=== PATIENT | female | born 1965 | race African-American/Black ===

== ENCOUNTER 2023-07-18 08:18 | Inpatient (IN) | payer MEDICAID ==
[~2023-07-18] VITALS: Ht 167.6 cm; Wt 100.2 kg
[2023-07-18] MEDS: ACETAMINOPHEN 325MG TABLET PO STA (08:41)
[2023-07-18] MEDS: SODIUM CHLORIDE 0.9% 1,000 ML IV ONE (08:45)
[2023-07-18 09:31] LABS: BASOPHILS % 0.6 % (0.0-2.0); EOSINOPHILS % 1.8 % (0.0-5.0); HEMATOCRIT. 38.4 % (36.0-48.0); HEMOGLOBIN. 12.4 g/dL (12.0-16.0); LYMPHOCYTES % 35.9 % (20.0-50.0); MEAN CORPUSCULAR HEMOGLOBIN 21.7 pg (28.0-32.0); MEAN CORPUSCULAR HGB CONC 32.3 g/dL (31.0-37.0); MEAN CORPUSCULAR VOLUME 67.3 fL (81.0-99.0); MEAN PLATELET VOLUME 8.7 fl (7.4-10.4); NEUTROPHILS % 55.7 % (40.0-76.0); PLATELET 330 x1000/uL (130-400); RED BLOOD CELL COUNT 5.71 mill/uL (4.2-5.4); WHITE BLOOD COUNT 8.3 x1000/uL (4.5-11.0)
[2023-07-18 09:35] LABS: CHLORIDE 106 mEq/L (98-107); POTASSIUM 4.3 mEq/L (3.5-5.1); SODIUM 134 mEq/L (136-145)
[2023-07-18 09:36] LABS: CALCIUM 10.1 mg/dL (8.7-10.4); CARBON DIOXIDE 19 mEq/L (21-32)
[2023-07-18 09:41] LABS: ADD RBC MORPHOLOGY YES; CREATININE 0.9 mg/dL (0.6-1.0); DIFFERENTIAL COMMENT 1; GLUCOSE 98 mg/dL (70-105); UREA NITROGEN BLOOD 8 mg/dL (9-23)
[2023-07-18 09:42] LABS: LACTIC ACID 2.8 mmol/L (0.4-2.0)
[2023-07-18 09:43] LABS: ALANINE AMINOTRANSFERASE 20 IU/L (10-49); ALBUMIN 4.3 g/dL (3.2-4.8); ASPARTATE AMINOTRANSFERASE 33 IU/L (<34)
[2023-07-18 09:44] LABS: BILIRUBIN TOTAL 0.5 mg/dL (0.1-1.0); PROTEIN TOTAL 9.2 g/dL (6.0-8.3)
[2023-07-18 09:45] LABS: PROTHROMBIN TIME 11.2 sec (9.6-11.0)
[2023-07-18 09:50] LABS: TROPONIN I HIGH SENSITIVITY < 4 ng/L (3.0-34)
[2023-07-18] MEDS: PIPERACILLIN/TAZO 3.375G/50ML 50 ML IV ONE (10:27)
[2023-07-18] MEDS: SODIUM CHLORIDE 0.9% 1000ML BAG (SEPSIS BOLUS) IV ONE (10:30)
[2023-07-18 11:17] LABS: ETHANOL BLOOD < 10 mg/dL (<10)
[2023-07-18] MEDS: VANCOMYCIN 1G PREMIX 200 ML IV ONE (11:37)
[2023-07-18] MEDS: IOHEXOL-300 100 ML BOTTLE ONE (11:48)
[2023-07-18 11:56] LABS: CLARITY URINE CLEAR (CLEAR); COLOR URINE YELLOW (YELLOW); GLUCOSE URINE NEGATIVE (NEGATIVE); KETONES URINE NEGATIVE (NEGATIVE); LEUKOCYTE ESTERASE URINE NEGATIVE (NEGATIVE); NITRITE URINE NEGATIVE (NEGATIVE); OCCULT BLOOD URINE TRACE (NEGATIVE); PROTEIN URINE NEGATIVE (NEGATIVE); UROBILINOGEN URINE 0.2 E.U./dL (0.2-1.0)
[2023-07-18 12:32] LABS: *AMPHETAMINES SCREEN URINE NEGATIVE (NEGATIVE)
[2023-07-18 12:33] LABS: *BARBITURATES SCREEN URINE NEGATIVE (NEGATIVE); *BENZODIAZEPINES SCREEN URINE NEGATIVE (NEGATIVE); *COCAINE SCREEN URINE NEGATIVE (NEGATIVE); CANNABINOID URINE SCREEN NEGATIVE (NEGATIVE); METHADONE URINE SCREEN NEGATIVE (NEGATIVE); OPIATES URINE SCREEN NEGATIVE (NEGATIVE); PHENCYCLIDINE URINE SCREEN NEGATIVE (NEGATIVE)
[2023-07-18 12:34] LABS: ECSTASY MDMA SCREEN URINE NEGATIVE (NEGATIVE)
[2023-07-18 12:47] LABS: PLATELET ESTIMATE NORMAL
[2023-07-18 12:48] LABS: MICROCYTOSIS 3+
[2023-07-18 13:08] LABS: RBC URINE 0-2 /hpf (0-2); WBC URINE 0-2 /hpf (0-2)
[2023-07-18 13:09] LABS: BACTERIA URINE NONE SEEN; SQUAMOUS EPITHELIAL CELL URINE FEW /lpf (RARE/1+)
[2023-07-18] MEDS ORDERED: IPRATROPIUM/ALBUTEROL 0.5-3(2.5)MG/3ML NEB HHN PRN (15:45)
[2023-07-18] MEDS ORDERED: ACETAMINOPHEN 325MG TABLET PO PRN ×2 (15:45)
[2023-07-18] MEDS ORDERED: NON FORMULARY PATIENT HOME MED XX SCH (15:45)
[2023-07-18] MEDS ORDERED: ONDANSETRON HCL 4MG/2ML INJ IV PRN (15:45)
[2023-07-18] MEDS ORDERED: DOCUSATE SODIUM 100MG CAPSULE PO PRN (15:45)
[2023-07-18] MEDS ORDERED: DEXTROSE 50% WATER 50ML SYRINGE IV PRN (16:15)
[2023-07-18] MEDS: SODIUM CHLORIDE 0.45% 1,000 ML IV SCH (16:30)
[2023-07-18] MEDS: INSULIN LISPRO 100 UNITS/ML SUBCUT SCH (17:15)
[2023-07-18] MEDS: BLOOD SUGAR DIAGNOSTIC STRIP TEST SCH (18:09)
[2023-07-18] MEDS: ENOXAPARIN 40MG/0.4ML SYR SUBCUT SCH (18:14)
[2023-07-18] MEDS: CLONIDINE 0.1MG TABLET PO PRN (18:36)
[2023-07-18] MEDS: MELATONIN 3MG TABLET PO SCH (20:21)
[2023-07-18 21:00] VITALS: BP 113/68; PULSE 64; RESP 19; TEMP 97.5
[2023-07-18 22:30] LABS: THYROID STIMULATING HORMONE 3.66 uIU/mL (0.55-4.78)
[2023-07-18 23:55] VITALS: BP 101/62; PULSE 63; RESP 20; TEMP 97.1
[2023-07-19 00:51] LABS: CREATINE KINASE 110 IU/L (34-145)
[2023-07-19 00:53] LABS: TROPONIN I HIGH SENSITIVITY < 4 ng/L (3.0-34)
[2023-07-19 04:00] VITALS: BP 116/71; PULSE 60; RESP 16; TEMP 97.1
[2023-07-19 04:56] LABS: CARBON DIOXIDE 25 mEq/L (21-32); CHLORIDE 107 mEq/L (98-107); POTASSIUM 4.2 mEq/L (3.5-5.1); SODIUM 139 mEq/L (136-145)
[2023-07-19 04:57] LABS: CALCIUM 9.7 mg/dL (8.7-10.4)
[2023-07-19 05:01] LABS: CREATININE 0.9 mg/dL (0.6-1.0)
[2023-07-19 05:02] LABS: GLUCOSE 98 mg/dL (70-105); UREA NITROGEN BLOOD 17 mg/dL (9-23)
[2023-07-19 05:04] LABS: CREATINE KINASE 102 IU/L (34-145)
[2023-07-19 05:06] LABS: TROPONIN I HIGH SENSITIVITY < 4 ng/L (3.0-34)
[2023-07-19 05:31] LABS: HEMOGLOBIN 11.3 g/dL (12.0-16.0); MEAN CORPUSCULAR HGB CONC 31.3 g/dL (31.0-37.0); MEAN CORPUSCULAR VOLUME 66.9 fL (81.0-99.0); PLATELET 308 x1000/uL (130-400); RED BLOOD CELL COUNT 5.38 mill/uL (4.2-5.4); WHITE BLOOD COUNT 6.3 x1000/uL (4.5-11.0)
[2023-07-19 07:52] VITALS: BP 113/68; PULSE 59; RESP 20; TEMP 97.9
[2023-07-19] MEDS: AMLODIPINE 5MG TABLET PO SCH (09:03)
[2023-07-19] MEDS ORDERED: ATOR20TA65 MT (11:32)
[2023-07-19] MEDS ORDERED: AMLO5TAB88 PO (11:32)
[2023-07-19] MEDS ORDERED: METF-414 MT (11:32)
[2023-07-19 11:42] VITALS: BP 133/79; PULSE 70; RESP 20; TEMP 97.9
[2023-07-19 14:36] VITALS: BP 113/68; PULSE 61; TEMP 98.4; O2SAT 97
[2023-07-19 15:55] VITALS: BP 130/78; PULSE 60; RESP 20; TEMP 98.7
== END 2023-07-19 16:47 | disposition home or self-care (01) | DRG 249 ==
LOC: ER 08:18 → 5WST 13:18 → EDBEDREQ 13:20 → 7WST 21:15
PROVIDERS: ADMIT Internal Medicine; ATTEND Internal Medicine
DX: K52.9 Noninfective gastroenteritis and colitis, unspecified (principal); R62.7 Adult failure to thrive; I16.9 Hypertensive crisis, unspecified; Z68.35 Body mass index [BMI] 35.0-35.9, adult; I10 Essential (primary) hypertension; E66.9 Obesity, unspecified; E11.9 Type 2 diabetes mellitus without complications; K59.00 Constipation, unspecified; I45.10 Unspecified right bundle-branch block; G47.00 Insomnia, unspecified; E78.00 Pure hypercholesterolemia, unspecified; Z87.891 Personal history of nicotine dependence; Z79.4 Long term (current) use of insulin
CPT/HCPCS: 36415; 71045; 74177; 80048; 80053; 80061; 80305; 80320; 81003; 82550; 82962; 83036; 83605; 83880; 84145; 84439; 84443; 84484; 85025; 85027; 85379; 85651; 87426; 87804; 93005; 93970; 99291; J1650; J2543; J3370; J7030; Q9967; G0480